=== PATIENT | female | born 1950 | race African-American/Black ===

== ENCOUNTER → 2019-10-11 | Outpatient (CLI) | payer MEDICARE ==
[~2019-10-11] MED LIST: ALLO100T57 PO; DILT180C66 PO; MIRT30TA PO; OMEG500C4 PO
== END | disposition home or self-care (01) ==
LOC: RAD 14:28
PROVIDERS: ATTEND Internal Medicine Nephrology
DX: Z01.818 Encounter for other preprocedural examination (principal); I11.9 Hypertensive heart disease without heart failure
CPT/HCPCS: 71045